=== PATIENT | female | born 1980 | race Caucasian/White ===

== ENCOUNTER → 2016-03-10 | Outpatient (CLI) | payer BC, OTHER ==
--- NOTE | 2016-03-10 09:26 | CT ---
EXAMINATION TYPE: CT abdomen pelvis w con DATE OF EXAM: 03/10/2016 8:49 AM HISTORY: Patient complains of LLQ pain. CT DLP: 1624mGycm Automated Exposure Control for Dose Reduction was Utilized. CONTRAST: CT scan of the abdomen and pelvis is performed with IV Contrast, patient injected with 100 mL of Omni paque 300. COMPARISON: CT abdomen and pelvis December 26, 2015 FINDINGS: LUNG BASES: No significant abnormality is appreciated. LIVER/GB: Cholecystectomy clips are redemonstrated. PANCREAS: Pancreas is diffusely prominent unchanged from prior study. No surrounding inflammatory carley nge is seen. No suspicious ductal dilatation is noted. SPLEEN: Mild splenomegaly is still present measuring 13.2 cm on long axis on axial image 24.. ADRENALS: No significant abnormality is seen. KIDNEYS: There is stable nonobstructing 5 mm calculus right kidney lower pole level seen best coronal image 56. BOWEL: The oral contrast reaches level of the rectum. There is no suspicious small or large bowel dil atation.. Mild fecal material is slightly prominent in the rectum as well as the proximal sigmoid col on. UTERUS/ADNEXA: Uterus is anteverted in shape and within normal limits in size. Tubal ligation clips i n the pelvis are redemonstrated near uterine margin. No suspicious adnexal masses are seen. LYMPH NODES: No greater than 1cm abdominal or pelvic lymph nodes are appreciated. OSSEOUS STRUCTURES: No significant abnormality is seen. OTHER: No significant additional abnormality is seen. IMPRESSION: No significant acute or new finding is clearly seen to account for patient's clinical sym ptoms. Perhaps mild to moderate distal colonic fecal stasis. No bowel obstruction is present.
== END | disposition home or self-care (01) ==
LOC: RADCTMAIN 08:22
PROVIDERS: ATTEND Surgery
DX: D27.9 Benign neoplasm of unspecified ovary (principal); K59.8 Other specified functional intestinal disorders
CPT/HCPCS: 74177; Q9967

== ENCOUNTER → 2016-03-14 | Outpatient (CLI) | payer BC | END | disposition home or self-care (01) | LOC: LABWHC1 09:54 | PROVIDERS: ATTEND Surgery | DX: D27.9 Benign neoplasm of unspecified ovary (principal) | CPT/HCPCS: 36415; 86304 ==

== ENCOUNTER → 2016-04-11 | Outpatient (CLI) | payer BC ==
--- NOTE | 2016-04-11 10:47 | XR ---
EXAMINATION TYPE: XR abdomen 1V DATE OF EXAM: 04/11/2016 10:18 AM COMPARISON: 03/10/2016 CT scan, 02/29/2000 KUB HISTORY: TECHNIQUE: One view abdominal series FINDINGS: The osseous structures are intact. The bowel gas pattern is nonspecific. Retained fecal debris noted and there is evidence of previous surgery involving the right upper quadrant and pelvis. Right kidney: 1. 3.4 mm right UPJ or proximal ureteral calculus stable in position from previous exam. Left kidney: 1. No suspicious calculi Pelvis: Pelvic calculi are stable and likely vascular. IMPRESSION: 1. Stable 3.4 mm UPJ or proximal right ureteral calculus unchanged in position from the previous exam .
== END | disposition home or self-care (01) ==
LOC: RADXRMAIN 10:06
PROVIDERS: ATTEND Urology
DX: N20.0 Calculus of kidney (principal)
CPT/HCPCS: 74000

== ENCOUNTER → 2016-04-15 | Outpatient (CLI) | payer BC ==
--- NOTE | 2016-04-15 12:17 | XR ---
EXAMINATION TYPE: XR KUB DATE OF EXAM: 04/15/2016 12:07 PM COMPARISON: 04/11/2016 HISTORY: Pain TECHNIQUE: One view abdominal series FINDINGS: The osseous structures are intact. The bowel gas pattern is nonspecific. Previous surgery in the pelvis noted. Surgical clips in the right upper quadrant seen. Renal outlines: No suspicious calcifications. Pelvis: There are 2 stable calcifications within the left pelvis which appear to be vascular. IMPRESSION: 1. Nonspecific abdomen. Previously suspected right ureteral calculus is no longer identified.
== END | disposition home or self-care (01) ==
LOC: RADXRMAIN 11:49
PROVIDERS: ATTEND Urology
DX: N20.1 Calculus of ureter (principal)
CPT/HCPCS: 74000

== ENCOUNTER → 2016-06-12 | Outpatient (CLI) | payer BC ==
--- NOTE | 2016-06-12 09:36 | US ---
EXAMINATION TYPE: US thyroid st tissue head/neck DATE OF EXAM: 06/12/2016 9:15 AM COMPARISON: NONE CLINICAL HISTORY: E04.1 Thyroid nodule. hoarseness, thyroid sensitivity, globus sensation GLAND SIZE: Right Lobe: 5.2 x 1.9 x 1.6 cm Overall Parenchyma: slightly heterogenous Left Lobe: 4.5 x 1.6 x 1.1 cm Overall Parenchyma: homogenenous Isthmus Thickness: 0.4 cm NODULES RIGHT: # of nodules measured on right: 0 LEFT: # of nodules measured on left: 0 ISTHMUS: # of nodules measured in the isthmus: 0 Bilateral neck scanned, no evidence of lymphadenopathy. Right thyroid appears enlarged. No nodules seen. IMPRESSION: negative
== END ==
LOC: RADUSWWP 08:49
PROVIDERS: ATTEND Otolaryngology
DX: E04.1 Nontoxic single thyroid nodule (principal); R49.0 Dysphonia
CPT/HCPCS: 76536

== ENCOUNTER → 2016-06-12 | Outpatient (CLI) | payer BC ==
[2016-06-12 17:59] LABS: ANA w/Reflex to Titer NEGATIVE (NEGATIVE)
== END | disposition home or self-care (01) ==
LOC: LABWHC1 09:17
PROVIDERS: ATTEND Nurse Practitioner Family
DX: F45.8 Other somatoform disorders (principal); J38.4 Edema of larynx; R49.0 Dysphonia; R53.83 Other fatigue
CPT/HCPCS: 36415; 76536; 84439; 84443; 86038; 86235; 86376

== ENCOUNTER → 2017-03-30 | Outpatient (CLI) | payer BC ==
--- NOTE | 2017-03-30 09:18 | CT ---
EXAMINATION TYPE: CT abdomen pelvis w con DATE OF EXAM: 03/30/2017 HISTORY: Pelvic mass CT DLP: 1468mGycm Automated Exposure Control for Dose Reduction was Utilized. CONTRAST: CT scan of the abdomen and pelvis is performed with oral and with IV Contrast, patient injected with 100 ml mL of Omnipaque 300. COMPARISON: CT abdomen and pelvis March 10, 2016. FINDINGS: LUNG BASES: No significant abnormality is appreciated. LIVER/GB: Cholecystectomy clips are redemonstrated. PANCREAS: Pancreas remains diffuse mildly prominent unchanged from prior study. SPLEEN: Spleen size remains mildly enlarged at 13.1 cm axial image 26 unchanged from prior. ADRENALS: No significant abnormality is seen. KIDNEYS: Bladder is mildly distended and pelvis without intraluminal mass or wall thickening. Previou sly visualized 5 mm lower pole right renal calculus is not seen on current study within kidney, urete r, or bladder suggesting interval passage, correlate clinically. BOWEL: The oral contrast reaches level of right colon. There is no suspicious small or large bowel di latation. UTERUS/ADNEXA: Anteverted uterus is redemonstrated. Uterus is not suspiciously enlarged. Tubal ligati on clips along the periphery are redemonstrated. Both ovaries are seen, right ovary best coronal imag e 75 posterior to uterus and left ovary axial image 73 in left pelvis, both are normal in size. Some scattered pelvic phleboliths are seen. LYMPH NODES: No greater than 1cm abdominal or pelvic lymph nodes are appreciated. OSSEOUS STRUCTURES: No significant abnormality is seen. OTHER: No significant additional abnormality is seen. IMPRESSION: No suspicious pelvic mass identified. No significant new or acute finding seen.
== END | disposition home or self-care (01) ==
LOC: RADCTMAIN 08:16
PROVIDERS: ATTEND Surgery
DX: R19.00 Intra-abdominal and pelvic swelling, mass and lump, unspecified site (principal); R68.89 Other general symptoms and signs; D27.9 Benign neoplasm of unspecified ovary
CPT/HCPCS: 74177; Q9967

== ENCOUNTER → 2017-07-09 | Outpatient (CLI) | payer BC ==
--- NOTE | 2017-07-09 11:56 | MM ---
Reason for exam: screening (asymptomatic). Baseline mammogram. Physical Findings: Nurse Summary: 1 x 2cm nodule in the left breast at 1 o'clock upper outer quadrant (nurse ts). MG 3D Screening Mammo W/Cad Bilateral CC and MLO view(s) were taken. There are scattered fibroglandular densities. Finding: There are typically benign round, grouped/clustered calcifications in the upper quadrant, anterior position of the right breast. There is no discrete abnormality. These results were verbally communicated with the patient and result sheet given to the patient on 07/09/17. ASSESSMENT: Incomplete: need additional imaging evaluation, BI-RAD 0 RECOMMENDATION: Ultrasound of the left breast. (palpable by nurse)
--- NOTE | 2017-07-09 12:09 | USB ---
Reason for exam: additional evaluation requested from abnormal screening. US Breast Workup Limited LT Left limited breast ultrasound including focal area of concern, retroareolar and axilla demonstrates two 0.4cm benign nodes at the axilla. These results were verbally communicated with the patient and result sheet given to the patient on 07/09/17. ASSESSMENT: Benign, BI-RAD 2 RECOMMENDATION: Routine screening mammogram of both breasts at age 39.
== END | disposition home or self-care (01) ==
LOC: RADMAMWWP 09:32
PROVIDERS: ATTEND Obstetrics & Gynecology
DX: Z12.31 Encounter for screening mammogram for malignant neoplasm of breast (principal); R92.8 Other abnormal and inconclusive findings on diagnostic imaging of breast
CPT/HCPCS: 77063; 77067

== ENCOUNTER → 2019-07-19 | Outpatient (CLI) | payer OTHER ==
--- NOTE | 2019-07-19 14:41 | CT ---
EXAMINATION TYPE: CT abdomen pelvis w con DATE OF EXAM: 07/19/2019 HISTORY: LLQ pain, abdominal and pelvic pain CT DLP: 1678mGycm Automated Exposure Control for Dose Reduction was Utilized. CONTRAST: CT scan of the abdomen and pelvis is performed with IV Contrast, patient injected with 100 ml mL of I sovue 300. COMPARISON: CT abdomen and pelvis March 30, 2017 and older CTs FINDINGS: LUNG BASES: No significant abnormality is appreciated. LIVER/GB: Cholecystectomy clips are redemonstrated. Visualized liver is markedly hypodense versus spl een consistent with diffuse fatty infiltration even more prominent than prior studies. New mild hepat omegaly noted increased in size from prior studies. PANCREAS: Pancreas is diffusely mildly prominent but unchanged in appearance from prior studies. SPLEEN: Fairly stable mild splenomegaly at 13.5 cm axial image 32. ADRENALS: No significant abnormality is seen. KIDNEYS: Symmetric cortical medullary uptake and excretion from both kidneys without hydronephrosis s een bilaterally. No recurrent renal calculi clearly identified. BOWEL: Oral contrast reaches the level of the cecum. No suspicious small or large bowel dilatation. UTERUS/ADNEXA: Heterogeneous anteverted uterus is slightly bulky could reflect underlying fibroids. T ubal ligation clips along the periphery are redemonstrated. LYMPH NODES: No greater than 1cm abdominal or pelvic lymph nodes are appreciated. OSSEOUS STRUCTURES: No significant abnormality is seen. OTHER: No significant additional abnormality is seen. IMPRESSION: No significant new or acute finding is seen to account for patient's clinical symptoms of new left lower quadrant pain. Note is made of increasing hepatomegaly and worsening fatty infiltrati on of liver. No recurrent renal calculi identified bilaterally.
== END | disposition home or self-care (01) ==
LOC: RADCTMAIN 12:15
PROVIDERS: ATTEND Family Medicine
DX: R16.0 Hepatomegaly, not elsewhere classified (principal); K76.0 Fatty (change of) liver, not elsewhere classified; R19.4 Change in bowel habit; Z88.8 Allergy status to other drugs, medicaments and biological substances
CPT/HCPCS: 74177; Q9967

== ENCOUNTER → 2019-08-08 | Outpatient (CLI) | payer OTHER ==
[2019-08-08 15:40] LABS: INR 0.9 (<1.2); Prothrombin Time 9.7 sec (9.0-12.0)
[2019-08-09 01:03] LABS: % Iron Saturation 16.01 (12.00-45.00)
[2019-08-09 04:01] LABS: Protein, Total 6.9 g/dL (6.2-8.2)
[2019-08-09 11:48] LABS: Ceruloplasmin 27.5 mg/dL (20.0-60.0)
[2019-08-09 13:32] LABS: Gamma Globulin 1.03 g/dL (0.70-1.50)
== END | disposition home or self-care (01) ==
LOC: LABWHC1 14:53
PROVIDERS: ATTEND Nurse Practitioner
DX: R16.2 Hepatomegaly with splenomegaly, not elsewhere classified (principal)
CPT/HCPCS: 36415; 81596; 82103; 82390; 82728; 83516; 83540; 83550; 84165; 85610; 86376

== ENCOUNTER → 2019-08-15 | Outpatient (CLI) | payer OTHER ==
--- NOTE | 2019-08-16 12:06 | MM ---
Reason for exam: screening (asymptomatic). Last mammogram was performed 2 years and 1 month ago. Physical Findings: A clinical breast exam by your physician is recommended on an annual basis and results should be correlated with mammographic findings. MG Screening Mammo w CAD Bilateral CC, MLO, and XCCL view(s) were taken. Prior study comparison: July 09, 2017, bilateral MG 3d screening mammo w/cad. There are scattered fibroglandular densities. Stable benign calcifications. There is no discrete abnormality. No significant changes when compared with prior studies. ASSESSMENT: Benign, BI-RAD 2 RECOMMENDATION: Routine screening mammogram of both breasts in 1 year.
== END | disposition home or self-care (01) ==
LOC: RADMAMWWP 09:44
PROVIDERS: ATTEND Obstetrics & Gynecology
DX: Z12.31 Encounter for screening mammogram for malignant neoplasm of breast (principal)
CPT/HCPCS: 77067

== ENCOUNTER → 2023-03-04 | Outpatient (CLI) | payer OTHER ==
--- NOTE | 2023-03-05 13:31 | MM ---
Reason for Exam: Screening (asymptomatic). Last mammogram was performed 3 year(s) and 7 month(s) ago. Patient History: Menarche at age 9. First Full-Term at age 21. 11/2019, Bilateral Reduction. Last menstrual period: 02/13/2023 Risk Values: Rachell 5 year model risk: 0.7%. NCI Lifetime model risk: 9.6%. Prior Study Comparison: 07/09/2017 Bilateral Screening Mammogram, [facility]. 08/15/2019 Bilateral Screening Mammogram, [facility]. Tissue Density: There are scattered fibroglandular densities. Findings: Analyzed By CAD. Asymmetry left breast CC view 10.8 cm and measuring 8 mm. Right breast: There is no suspicious group of microcalcifications or new suspicious mass. Overall Assessment: Incomplete: need additional imaging evaluation, BI-RAD 0 Management: Diagnostic Mammogram of the left breast. [facility] will attempt to contact patient to return for supplemental views and ultrasound if indicated. Patient should continue monthly self-breast exams. A clinical breast exam by your physician is recommended on an annual basis. This exam should not preclude additional follow-up of suspicious palpable abnormalities. Note on Rachell scores and lifetime risk: 1. A Rachell score greater than 3% is considered moderate risk. If this is the case, consider specialist referral to assess eligibility for a risk reducing agent. 2. If overall lifetime risk for the development of breast cancer is 20% or higher, the patient may qualify for future screening with alternating mammogram and breast MRI. Electronically signed and approved by: Mateo Monte DO
== END | disposition home or self-care (01) ==
LOC: RADMAMWWP 07:51
PROVIDERS: ATTEND Family Medicine
DX: Z12.31 Encounter for screening mammogram for malignant neoplasm of breast (principal)
CPT/HCPCS: 77067

== ENCOUNTER → 2023-03-18 | Outpatient (CLI) | payer OTHER ==
--- NOTE | 2023-03-18 13:14 | MM ---
Reason for Exam: Clinical finding. Last screening mammogram was performed less than 1 month ago. Patient History: Menarche at age 9. First Full-Term at age 21. 11/2019, Bilateral Reduction. Risk Values: Rachell 5 year model risk: 0.7%. NCI Lifetime model risk: 9.6%. Prior Study Comparison: 07/09/2017 Bilateral Screening Mammogram, [facility]. 08/15/2019 Bilateral Screening Mammogram, [facility]. 03/04/2023 Bilateral MG screening mammo w CAD, [facility]. Tissue Density: Left: There are scattered fibroglandular densities. Findings: Analyzed By CAD. The medial density becomes slightly less defined but incompletely disperses on spot review. No persisting mass on the tomographic images. Findings likely on the basis of post reduction changes. 6 month follow-up to reassess. Overall Assessment: Probably benign, BI-RAD 3 Management: Diagnostic Mammogram of the left breast in 6 months. Results were given to the patient verbally at the time of exam. Patient should continue monthly self-breast exams. A clinical breast exam by your physician is recommended on an annual basis. This exam should not preclude additional follow-up of suspicious palpable abnormalities. Note on Rachell scores and lifetime risk: 1. A Rachell score greater than 3% is considered moderate risk. If this is the case, consider specialist referral to assess eligibility for a risk reducing agent. 2. If overall lifetime risk for the development of breast cancer is 20% or higher, the patient may qualify for future screening with alternating mammogram and breast MRI. Electronically signed and approved by: Brooklynn Emery M.D. Radiologist
== END | disposition home or self-care (01) ==
LOC: RADMAMWWP 12:49
PROVIDERS: ATTEND Family Medicine
DX: R92.322 Mammographic fibroglandular density, left breast (principal)
CPT/HCPCS: 77061; 77065